=== PATIENT | male | born 1955 | race Two or more races ===

== ENCOUNTER 2025-03-19 09:56 | Outpatient (AMB) | payer MEDICARE, SELFPAY ==
--- OUTSIDE RECORDS SUMMARY | 2025-02-23 04:00 | XMS_ITS | Continuity of Care Document ---
Author Organization [facility] Address [address] [place] [address] Phone Care Team Providers Care Parachute Officer Name Role Phone See MELENDEZ, SUE, RUTHIE, Jack Unavailable U navailable Allergies, Adverse Reactions, Alerts Substance Reaction Status Criticality No Known Allergies Active No Inform ation Procedures Procedure Date Duplex Scan-extrem Veins; Uni/ CT & [place] O ct Endovenous Laser, 1st Vein- CT & [place] Ultrason Guidan Needle Bx-rad- CT & [place] O ct Inj Sclerosing Solution; Sngl- CT & [place] O ct Duplex Scan-extrem Veins; Uni/ CT & [place] O ct Endovenous Rf, 1st Vein- CT & [place] 2024 Ultrason Guidan Needle Bx-rad- CT & MA S Inj Sclerosing Solution; Sngl- CT & [place] S ep Offic Cons New/estab Mod 40 Mi- CT & [place] Duplex Scan-extrem Veins; Comp- CT & [place] Advance Directives Directive Yes / No Effective Date File Name No Information Encounters Encounter Description Practice Location Reason(s) For Visit Diagnoses Date Provider Providers Copied on Encounter [facility] MD ELLER, [address] [place] [address] Dr [address], [place], [id number], [place] tel:[phone] [facility] Encounter for follow-up examination after completed treatment for conditions other than malignant neoplasmChronic venous hypertension (idiopathic) with other complications of left lower extremity Oct-1 5 See MELENDEZ RVT, RPVI Robert. [address] [place] [address], [facility] [place], [id number] , [place]. tel:[phone] Referring Provider: Skye Castaneda NP, [address] [place] [address], [facility], [address]. tel:[phone] [facility], [address] [place] [address] Dr [address]Than[place], [id number], [place] tel:[phone] [facility] Chronic venous hypertension (idiopathic) with inflammation of left lower extremity Oct-0 5 See MELENDEZ RVT, RUTHIE Santiago. [address] [place] [address], [facility] [place], [id number] , [place]. [phone] Referring Provider: Skye Castaneda NP, [address] [place] [address], [place], [address]. tel:[phone] [facility], [address] [place] [address] Dr [address]Than[place], [id number], [place] tel:[phone] [facility] Encounter for follow-up examination after completed treatment for conditions other than malignant neoplasmVaricos e veins of right lower extremity with pain Feb-0 5 See MELENDEZ RVT, RPVI Robert. [address] [place] [address], [facility] RUMA crow, [id number] , [place]. tel:[phone] Referring Provider: Skye Castaneda NP, [address] [place] [address], [facility] [place], [address]. tel:[phone] [facility], [address] [place] [address] Dr [address]Thanh [place], [id number], [place] tel:[phone] [facility] No Information Sep-3 5 See MELENDEZ RVT, RPVI Robert. [address] [place] [address], [facility] [place], [id number] , [place]. tel:[phone] [facility], [address] [place] [address] Dr [address]Than[place], [id number], [place] tel:[phone] [facility] [place] [facility] [place] Chronic venous hypertension (idiopathic) with inflammation of right lower extremity Sep-3 5 See MELENDEZ RVT, RUTHIE Santiago. [address] [facility] [address], [facility] [place], [id number] , [place]. tel:[phone] Referring Provider: Skye Castaneda NP, [address] [facility], [place], [address]. tel:[phone] Offic Cons New/estab Mod 40 Mi- CT & [place] [facility], [address] [place] [address] Dr [address] [address]Than[place], [id number], [place] tel:[phone] [facility] [place] Restless legs syndromeVenous insufficiency (chronic) (peripheral)Pru ritus, unspecifiedCram p and spasmLocalized edemaPain in right lower legPain in left lower legPain in right legPain in left leg 5 See MELENDEZ RVT, RUTHIE Santiago. [address] [address], [facility] [place], [id number] , [place]. tel:[phone] Referring Provider: Skye Castaneda NP, [address], [place], [address]. tel:[phone] [facility], [address] [place] [address] Dr [address]Thanh [place], [id number], [place] tel:[phone] [facility] [place] Chronic venous hypertension (idiopathic) with other complications of bilateral lower extremity 5 See MELENDEZ RVT, RUTHIE Santiago. [address] [facility], [place], [place], [id number] , [place]. tel:[phone] Referring Provider: Skye Castaneda NP, [address] [place], [address]. tel:[phone] Family History Family Member Type Diagnosis Age At Onset No Information Payers Payer name Insurance type Covered green party ID Hanny garcia(s) [facility] [id number] Social History Type Description Quantity Date Captured Comments Sex Male Smoking Status No Information Chief Complaint And Reason For Visit No Information Reason For Referral Reason For Referral No Information Plan Of Treatment Date Type Action Status Goal Diet education completed Goal Tobacco cessation counseling completed Referral Ordered: Weight management: Referral to physician timeframe: 3 Months (related to Body mass index (BMI) 31.0-31.9, adult) ordered Appointment Pasquale Fenton BOOKED Appointment Pasquale Fenton BOOKED History Of Present Illness Encounter Date Complaint History Of Prese nt Illness No Information Functional Status Date Functional Assessmen t No Information Instructions Date Instruction Additional Infor mation Lifestyle education Related to B marlee mass index (BMI) 31.0-31.9, adult Diet education Related to Body mass index (BMI) 31.0-31.9, adult Giving Encouragement to exercise Related to Body mass index (BMI) 31.0-31.9, adult Patient education booklet given Related to Pain in right lower leg Pre and post instruc tions reviewed and provided Related to Pain in right lower leg Assessments Type Assessment Date No Information Patient Care Teams Name Effective Dates (start - stop) Status Members No Information
--- NOTE | 2025-03-19 11:04 | MHC.OFFVIS ---
Intake Visit Reasons: Diabetes 2 Intake Note: Pasquale is a 70 year old male who presents today as a new patient for a diabetic foot exam. Pt States his sugars was 145 as of this morning and his last known A1c was 8.6%. He denies having numbness or tingling sensation in his feet and he has no previous history of wounds or amputations. Allergies No Known Allergies Allergy (Verified 03/19/25 11:04) Medication List - Last Reviewed 03/19/25 by KENN France amlodipine 10 mg PO DAILY atovaquone 1,500 mg PO DAILY azithromycin 250 mg PO 3XW blood-glucose sensor (FreeStyle Kathy 3 Plus Sensor device) As directed blood-glucose,pit furnace melter,cont (FreeStyle Kathy 3 [place]) As directed calcium carbonate-vitamin D3 600 mg-10 mcg (400 unit) 1 tab PO DAILY carvedilol 25 mg PO DAILY clonazepam 0.5 mg PO ONCE PRN [Diabetic shoes and inserts As directed - please provide 1 pair of shoes and 3 inserts] empagliflozin (Jardiance) 25 mg PO DAILY empagliflozin (Jardiance) 10 mg PO QAM famotidine 10 mg PO DAILY famotidine (Heartburn Relief (famotidine)) 10 mg PO DAILY flash glucose sensor (FreeStyle Kathy 2 Sensor kit) As directed furosemide 80 mg PO BID insulin aspart U-100 (Novolog FlexPen U-100 Insulin aspart) subcut insulin degludec units subcut levothyroxine 137 mcg PO DAILY levothyroxine 125 mcg PO DAILY loratadine 10 mg PO DAILY magnesium oxide 400 mg PO BID pen needle, diabetic (Sonal 2nd Gen Pen Needle) As directed prednisone 5 mg PO QAM semaglutide (Ozempic) mg subcut sodium zirconium cyclosilicate (Lokelma) grams PO tacrolimus 2 mg PO Q12H HPI Comments Details: The patient is a 70-year-old male with a PMH as seen below presenting for a diabetic foot exam. Patient states his most recent blood glucose was 145 mg/dL and his most recent A1c was 8.6. He states he was previously using Insulin but states he is currently being transitioned towards using a different medication. He denies any numbness and tingling. Patient also states he has swelling in B/L LEs. He states he wears compression stockings. The patient has undergone vascular surgery. He denies any other pedal concerns. Patient was accompanied by his . [facility] Medical History (Updated 03/21/25 @ 16:31 by Jie Herr DPM) Varicose veins of bilateral lower extremities with other complications PVD (peripheral vascular disease) Bilateral leg edema Diabetes mellitus type 2 with complications Review of Systems Const Details: - Vascular: Reports intermittent B/L LE swelling. - Endocrine: Reports stable blood glucose level of 145 mg/dL and A1c of 8.6. Physical Exam Extrem Other: B/L LE Focused Physical Exam: Derm: Slightly thickened toenails x10 without discoloration or subungual debris. No open lesions, abrasions, or wounds noted. No ecchymosis or discoloration noted. No active bleeding, purulence, or drainage noted. No clinical signs of infection. Vasc: DP pulses palpable. PT pulses nonpalpable. CFT < 3 secs. Temp gradient warm to warm. Pedal hair absent. Varicosities noted. Pitting edema noted. Neuro: Protective sensations grossly intact to light touch and monofilament testing. MSK: No pain on palpation to the lower extremities. Crepitus noted with ROM of the ankles. ROM of the forefoot, hindfoot, and ankles WNL. No fluctuance noted. MMT 5/5. Nonantalgic gait noted. Pes planus foot type. Class B and C findings. Office Procedures Diabetic Foot Exam G9226 - Diabetic Foot Exam Results Reviewed Results Reviewed: Patient reports Blood glucose level yesterday of 145 mg/dL and A1c of 8.6. Assessment & Plan Assessment & Plan (1) Diabetes mellitus type 2 with complications: Code(s): E11.8 - Type 2 diabetes mellitus with unspecified complications Category: Medical (2) Bilateral leg edema: Code(s): R60.0 - Localized edema Category: Medical (3) PVD (peripheral vascular disease): Code(s): I73.9 - Peripheral vascular disease, unspecified Category: Medical (4) Pes planus: Code(s): M21.40 - Flat foot [pes planus] (acquired), unspecified foot Qualifiers: Laterality: bilateral Qualified Code(s): M21.41 - Flat foot [pes planus] (acquired), right foot; M21.42 - Flat foot [pes planus] (acquired), left foot (5) Varicose veins of bilateral lower extremities with other complications: Code(s): I83.893 - Varicose veins of bilateral lower extremities with other complications Category: Medical Plan Patient was informed and verbally consented to the use of an ambient scribe for clinic note documentation during this visit. Educated patient about diabetes and the effects on the lower extremities. I discussed the importance of wearing compression socks to manage swelling. We also talked about the necessity of proper footwear and avoiding barefoot walking to prevent injuries. Regular nail care appointments were scheduled, and a prescription for shoe inserts was provided. - Continue wearing compression socks to manage peripheral edema. - Maintain current diabetes medication regimen and monitor blood sugar levels as per PCP and fruit or nut farmer. - Avoid walking barefoot and wear supportive shoe gear to prevent foot injuries. - Prescribed diabetic shoes and inserts. - Plan for routine diabetic nail care. RTC in 3 weeks. Orders: Orders AMB Diabetic Foot Exam 03/19/25 E11.8 - Type 2 diabetes mellitus with unspecified complications, I73.9 - Peripheral vascular disease, unspecified, R60.0 - Localized edema Medications: New [Diabetic shoes and inserts] As directed - please provide 1 pair of shoes and 3 inserts 1 ea 0RF E11.8 - Type 2 diabetes mellitus with unspecified complications, I73.9 - Peripheral vascular disease, unspecified, M21.40 - Flat foot [pes planus] (acquired), unspecified foot, R60.0 - Localized edema Coding Level of Care Code New Pt Level 4 (18687) Diagnoses Diabetes mellitus type 2 with complications E11.8 Bilateral leg edema R60.0 PVD (peripheral vascular disease) I73.9 Pes planus of both feet M21.41; M21.42 Laterality: bilateral Varicose veins of bilateral lower extremities with other complications I83.893 CPT Codes Diabetic Foot Exam - CPT: G9226 - Diabetic Foot Exam ([id number]) Time Spent (min) 49
--- OUTSIDE RECORDS SUMMARY | 2025-03-19 11:40 | XMS_ITS ---
Author Organization [facility] Care Team Providers Care Latex Thread Machine Operator Name Role Phone Richa Aranda Unavailable Unavailable Gaby Arnett Unavailable Unavailable Iram Toro Unavailable Unavailable Sierra Alexander Unavailable Unavailable Whitney Schrader Unavailable Unavailable Allergies and adverse reactions Code CodeSystem Substance Reaction Severity StartDate Concern Status Ofev Unknown 03/22/2016 active Care Team Name Role Address Phone Organization Dates Iram Toro PCP [address], [place], [address], [facility] (Office): [facility] 03/22/2016 - 03/30/2016 Richa Aranda [address] [place], [address], [facility] (Office): [facility] 03/22/2016 - 03/30/2016 Gaby Arnett [address] [facility] [address] [place] [address], [address], [facility] (Office): [facility] 03/22/2016 - 03/30/2016 Sierra Alexander [address], [address], [facility] (Office): [facility] 03/22/2016 - 03/30/2016 Whitney Schrader [address] [facility] [address] [place] [address] [place], [address], [facility] (Office): [facility] 03/22/2016 - 03/30/2016 Encounters Encounter Type Code Code System Description Performer Discharge Disposition Service Delivery Location Date Ambulatory Encounter CPT Code = [id number] Respiratory failure [facility] Address: [address] [place] [address], [address] [place] [address] , [facility]. 02/17 Ambulatory Encounter CPT Code = [id number] Fibrosis of lung [facility] Address: [address] [place] [address], [address] , [facility]. 02/17 Ambulatory Encounter CPT Code = [id number] Incoordination [facility] Address: [address] [place] [address], [address] , [facility]. 02/17 Ambulatory Encounter CPT Code = [id number] Difficulty walking [facility] Address: [address] [place] [address], [address] , [facility]. 02/17 Ambulatory Encounter CPT Code = [id number] Dyspnea [facility] Address: [address] [place] [address], [address] , [facility]. 02/17 Immunizations Immunization Status Vaccine Details Vaccine Code CodeSystem Peng e Notes Influenza cancelled Influenza, split virus, trivalent, injectable, contains preservative 141 CVX created date: 03/22/2016 consent date: 03/22/2016 Pneumovax Dose 1 cancelled cre ated date: 03/22/2016 consent date: 03/22/2016 Medications Section Medication Name Status Code CodeSystem Dose Route Frequency Admin Type Sig Text Start Date End Date Indication Acetaminoph en Tablet 325 MG active 60172 2 RXNORM 2 table t Oral as needed PRN Give 2 table t by mouth every 6 hours as neede d for Pain Do not excee d 3 grams in 24 hours . T otal 650 mg AND Give 2 table t by mouth every 6 hours as neede d for Ferdinand n[place] ratur e > 99 Do not excee d 3 grams in 24 hours . T otal 650mg 2024 - Pain 79392 2 RXNORM 2 table t Oral as needed PRN Give 2 table t by mouth every 6 hours as neede d for Pain Do not excee d 3 grams in 24 hours . T otal 650 mg AND Give 2 table t by mouth every 6 hours as neede d for Ferdinand naga dior e > 99 Do not excee d 3 grams in 24 hours . T otal 650mg 2024 - Elevated Temperature > 99 Mental Status Section Date Assessment Total Score Description 03/30/2016 BIMS 15 cognitively int act CAM 0 No delirium ind icated PHQ-9 00 03/29/2016 BIMS 15 cognitively int act CAM 0 No delirium ind icated PHQ-9 00 Insurance Providers Problems Problem # Description Date of onset Resolved Date Code CodeSystem Concern Status 1 ACUTE RESPIRATORY FAILURE, UNSPECIFIED WHETHER WITH HYPOXIA OR HYPERCAPNIA 03/23/[address] active 2 DIFFICULTY IN WALKING, NOT ELSEWHERE CLASSIFIED 03/22/[address] active 3 OTHER LACK OF COORDINATION 03/22/[address] active 4 PULMONARY FIBROSIS, UNSPECIFIED 03/22/[address] active 5 SHORTNESS OF BREATH 03/22/[address] active Reason for Referral No Reasons for Referral Entered Social History Social History Observation Description Start Date End Date Code Code System Current Smoking Status Tobacco smoking consumption unknown 396849673 SNOMED CT Sex Assigned At Male 1955 15075-7 [facility] Gender Identity Sexual Orientation Vital Signs Code Code System Vitals Name Values and Units Timing Information 8867-4 [facility] Heart rate Value=78.0 Units=/min 09413-3 LOINC Weight Oztlb=154.6 Units=Lbs 2339-0 INC Blood Sugar Rugvs=270.0 Units=mg/dL 03/29/2016 9279-1 INC Respiratory Rate Value=20.0 Units=/m in 03/29/2016 8462-4 INC Blood Pressure-Diastolic Value=76 Un its=mmHg 03/29/2016 8480-6 LOINC Blood Pressure-Systolic Xzjwh=963 Un its=mmHg 03/29/2016 8310-5 [facility] Body Temperature Value=97.0 Units= F 03/29/2016 65065-7 LOINC O2 % BldC Oximetry Value=96.0 Units= % 03/29/2016 8302-2 LOINC Height Value=66.0 Units=Inches 03/26/2016
--- OUTSIDE RECORDS SUMMARY | 2025-03-19 11:40 | XMS_ITS | Clinical Summary ---
Author Organization [facility] Address [address] [place] [address] Care Team Providers Care Account Strategist Name Role Phone Unavailable Primary Care Provider Unavailabl e Surgical History Surgery Date Site/Laterality Comments COLONOSCOPY 11/08/11 PROCEDURE: HISTORICAL COLONOSCOPY Medical History Medical History Date Comments COPD (chronic obstructive pu lmonary disease) ([facility] V24, [facility] V28) 05/25/2014 DX:COPD (chronic o bstructive pulmonary disease) ([facility]) Rosacea 05/25/2014 DX:Rosacea Leukocytosis 05/25/2014 DX:Leukocytosis Family History Medical History Relation Name Comments Diabetes Brother 1 Other: pulmonary embolism Father Hypertension Mother Relation Name Status Comments Brother 1 Brother 2 Father Mother Social History Tobacco Use Types Packs/Day Years Used Date Smoking Tobacco: Former Smokeless Tobacco: Never Alcohol Use Standard Drinks/Week Comments No 0 (1 standard drink = 0.6 oz pur e alcohol) Sex and Gender Information Value Date Recorded Sex Assigned at Not on file Legal Sex Male 8:26 AM EST Gender Identity Not on file Sexual Orientation Not on file Obstetrics History Plan of Treatment Health Maintenance Due Date Last Done Comments DTaP,Tdap,and Td Vaccines (1 - Tdap) 1974 Pneumococcal Vaccine: 50+ Ye ars (2 of 2 - PCV) 01/14/2013 01/15/2012 Zoster Vaccines (2 of 3) 07/20/2013 05/25/2013 Depression Screening 05/13/2024 COVID-19 Vaccine ( - 2023-2 5 season) 2025 Influenza Vaccine (#1) 2025 02/24/2014 RSV Immunization Adult Patie nts (1 - 1-dose 75+ series) 2028 HIB Vaccines Aged Out No longer eligi ble based on patient's age to complete this topic HPV Vaccines Aged Out No longer eligi ble based on patient's age to complete this topic Hepatitis A Vaccines Aged Out No long er eligible based on patient's age to complete this topic Hepatitis B Vaccines Aged Out No long er eligible based on patient's age to complete this topic IPV Vaccines Aged Out No longer eligi ble based on patient's age to complete this topic MMR Vaccines Aged Out No longer eligi ble based on patient's age to complete this topic Meningococcal ACWY Vaccine Aged Out N o longer eligible based on patient's age to complete this topic Meningococcal B Vaccine Aged Out No l onger eligible based on patient's age to complete this topic RSV Immunization Patients Un tommie 20 months Aged Out No longer eligible b ased on patient's age to complete this topic Varicella Vaccines Aged Out No longer eligible based on patient's age to complete this topic
== END 2025-03-19 11:37 | disposition home or self-care (01) ==
LOC: HO.HPODS 09:56
PROVIDERS: PCP Nurse Practitioner Family; Visit Provider Student in an Organized Health Care Education/Training Program
DX: E11.8 Type 2 diabetes mellitus with unspecified complications (principal); R60.0 Localized edema; I73.9 Peripheral vascular disease, unspecified; M21.41 Flat foot [pes planus] (acquired), right foot; M21.42 Flat foot [pes planus] (acquired), left foot; I83.893 Varicose veins of bilateral lower extremities with other complications
CPT/HCPCS: 99204; G9226

== ENCOUNTER → 2025-03-19 09:56 | Outpatient (BNVA) | payer OTHER, SELFPAY | PROVIDERS: PCP Nurse Practitioner Family; Visit Provider Student in an Organized Health Care Education/Training Program | DX: E11.8 Type 2 diabetes mellitus with unspecified complications (principal); I73.9 Peripheral vascular disease, unspecified; M21.41 Flat foot [pes planus] (acquired), right foot; M21.42 Flat foot [pes planus] (acquired), left foot; I83.893 Varicose veins of bilateral lower extremities with other complications | CPT/HCPCS: 99202 ==

== ENCOUNTER 2025-04-12 10:45 | Outpatient (AMB) | payer MEDICARE, SELFPAY ==
--- NOTE | 2025-04-12 11:35 | MHC.OFFVIS ---
Intake Visit Reasons: routine diabetic nail care Intake Note: Pasquale is a 70 year old male here today for a follow up for routine diabetic nail care. Patient was advised to continue wearing compression socks, avoid barefoot walking and to wear supportive shoe gear. Patient prescribed diabetic shoes and inserts. Patient reports everything is not too bad. No one has contacted him for diabetic shoes and inserts yet. Patient had a low sugar this morning of 70. No numbness, tingling or burning in feet. Allergies No Known Allergies Allergy (Verified 04/12/25 11:36) HPI Comments Details: The patient is a 70-year-old individual presenting for routine diabetic preventative foot care. The patient states his most recent blood glucose is 70 mg/dL. Patient states he experiences discomfort to the toes when the nails are too thick or too long. He denies any new pedal injuries. He denies any other pedal concerns. Patient was accompanied by his . Patient is unable to tend to his feet due to his past medical history. [facility] Medical History (Updated 04/14/25 @ 10:43 by Jie Herr DPM) Tinea unguium Nail disorder Varicose veins of bilateral lower extremities with other complications PVD (peripheral vascular disease) Bilateral leg edema Diabetes mellitus type 2 with complications Review of Systems Const Details: - Vascular: Reports intermittent B/L LE swelling. - Endocrine: Reports blood glucose level of 70 mg/dL. Physical Exam Extrem Other: B/L LE Focused Physical Exam: Derm: Slightly thickened and elongated toenails x10 without discoloration or subungual debris. No open lesions, abrasions, or wounds noted. No ecchymosis or discoloration noted. No active bleeding, purulence, or drainage noted. No clinical signs of infection. Vasc: DP pulses palpable. PT pulses nonpalpable. CFT < 3 secs. Temp gradient warm to warm. Pedal hair absent. Varicosities noted. Pitting edema noted. Neuro: Protective sensations grossly intact to light touch and monofilament testing. MSK: No pain on palpation to the lower extremities. Crepitus noted with ROM of the ankles. ROM of the forefoot, hindfoot, and ankles WNL. No fluctuance noted. MMT 5/5. Nonantalgic gait noted. Pes planus foot type. Class B and C findings. Office Procedures AMB Debridement/Avulsion Podia Details: Debrided toenails x10 using sterile nail nippers and Dremel without incidents. 30027-[id number] of Nail 6+ Procedure code (CPT) selection complete Results Reviewed Results Reviewed: Patient reports Blood glucose level yesterday of 70 mg/dL and A1c of 8.6. Assessment & Plan Assessment & Plan (1) Diabetes mellitus type 2 with complications: Code(s): E11.8 - Type 2 diabetes mellitus with unspecified complications Category: Medical (2) Bilateral leg edema: Code(s): R60.0 - Localized edema Category: Medical (3) PVD (peripheral vascular disease): Code(s): I73.9 - Peripheral vascular disease, unspecified Category: Medical (4) Pes planus: Code(s): M21.40 - Flat foot [pes planus] (acquired), unspecified foot (5) Varicose veins of bilateral lower extremities with other complications: Code(s): I83.893 - Varicose veins of bilateral lower extremities with other complications Category: Medical (6) Nail disorder: Code(s): L60.9 - Nail disorder, unspecified Category: Medical (7) Tinea unguium: Code(s): B35.1 - Tinea unguium Category: Medical Plan Patient was informed and verbally consented to the use of an ambient scribe for clinic note documentation during this visit. Discussed with patient continued recommended foot care every 9 weeks for preventative measures. - Debrided toenails x10. - Continue wearing compression socks to manage peripheral edema. - Maintain current diabetes medication regimen and monitor blood sugar levels as per PCP and insulator technician. - Avoid walking barefoot and wear supportive shoe gear to prevent foot injuries. - Obtain diabetic shoes and inserts. RTC in 9 weeks. Orders: Orders AMB Debridement/Avulsion Podiatry 04/12/25 B35.1 - Tinea unguium, E11.8 - Type 2 diabetes mellitus with unspecified complications, I73.9 - Peripheral vascular disease, unspecified, I83.893 - Varicose veins of bilateral lower extremities with other complications, L60.9 - Nail disorder, unspecified, R60.0 - Localized edema Coding Level of Care Code Est Pt Level 3 (63271) Diagnoses Diabetes mellitus type 2 with complications E11.8 Bilateral leg edema R60.0 PVD (peripheral vascular disease) I73.9 Pes planus M21.40 Varicose veins of bilateral lower extremities with other complications I83.893 Nail disorder L60.9 Tinea unguium B35.1 CPT Codes Skin Debridement - CPT: 43297-Ehtpqvdelfm of Nail 6+ ([id number]) Time Spent (min) 28 Comment 8 mins for procedure
--- OUTSIDE RECORDS SUMMARY | 2025-04-12 13:46 | XMS_ITS | Encounter Summary ---
Author Organization [facility], Address [address] [place] [address] Phone Care Team Providers Care Bedspring Assembler Name Role Phone Skye Castaneda NP Primary Care Provider [phone] Encounter Details Date Type Department Care Team (Late st Contact Info) Description 03/12/2025 Orders Only [facility], [address] [place] [address] Prakash Holbrook MD [address] [place] [phone] Chronic kidney disease stage 4 (HCC) Social History Tobacco Use Types Packs/Day Years Used Date Smoking Tobacco: Former Cigarettes 0 Q uit: 08/07/1999 Smokeless Tobacco: Never Comments:Smoking History Inf o:Some days Sex and Gender Information Value Date Recorded Sex Assigned at Not on file Legal Sex Male 4:30 PM EST Gender Identity Not on file Sexual Orientation Not on file documented as of this encounter Plan of Treatment Not on file documented as of this encounter Visit Diagnoses Diagnosis Chronic kidney disease stage 4 (HCC) documented in this encounter Care Teams Bedspring Assembler Relationship Specialty Start Date End Date Skye Castaneda NP [address] [place] [address] PCP - General Nurse Practitioner 06/30/24 documented as of this encounter
--- OUTSIDE RECORDS SUMMARY | 2025-04-12 13:46 | XMS_ITS | Encounter Summary ---
Author Organization [facility] [place], Address [address] [place] [address] Phone Care Team Providers Care Special Education Director Name Role Phone Skye Castaneda DECORATOR STREET AND BUILDING Primary Care Provider [phone] Encounter Details Date Type Department Care Team (Late st Contact Info) Description 10/24/2021 Documentation Only [facility], [address] [place] [address] Prakash Holbrook MD [address] [place] [phone] Social History Tobacco Use Types Packs/Day Years [...] documented as of this encounter Visit Diagnoses Not on filedocumented in this encounter Care Teams Special Education Director Relationship Specialty Start Date End Date Skye Castaneda NP [address] [place], [place] [phone] PCP - General Nurse Practitioner 06/30/24 documented as of this encounter
--- OUTSIDE RECORDS SUMMARY | 2025-04-12 13:46 | XMS_ITS | Clinical Summary ---
Author Organization [facility] [place], Address [address] [address] Phone Care Team Providers Care Sales Supervisor Name Role Phone Skye Castaneda NP Primary Care Provider [phone] Allergies Active Allergy Reactions Criticality Noted Date Comments Nintedanib 08/29/2016 diarrhea Medications ASPIRIN 81 PO Take 81 mg by mouth daily Active Calcium Carbonate-Vitam in D3 600-400 MG-UNIT tablet 1 tablet 2 (two) times a day 7 Active Insulin Pen Needle 31G X 8 MM misc 1 each 7 Active MAGNESIUM OXIDE 400 PO Take 400 mg by mouth twice a day 9 Active Polyethylene Glycol 1000 powder Take 17 g by mouth 9 Active pyridoxine (VITAMIN B-6) 50 MG tablet Take 50 mg by mouth daily 9 Active pyridoxine (VITAMIN B-6) 50 MG tablet 1 tablet 1 (one) time each day 7 Active potassium & sodium phosphates (PHOS-NAK) 280-160-250 MG packet Take 1 packet by mouth 9 Active acetaminophen (TYLENOL) 500 MG tablet Take 1,000 mg by mouth every 6 (six) hours if needed 7 Active amLODIPine (NORVASC) 5 MG tablet Take 5 mg by mouth 1 (one) time each day 9 Active atovaquone (MEPRON) 750 MG/5ML suspension 10 mL 1 (one) time each day 7 Active Carboxymethylce llul-Glycerin (REFRESH OPTIVE) 0.5-0.9 % solution Administer 1 drop into both eyes 4 (four) times a day 8 Active famotidine (PEPCID) 20 MG tablet Take 20 mg by mouth twice a day 9 Active insulin aspart (NovoLOG FLEXPEN) 100 UNIT/ML injection Inject under the skin 7 Active insulin glargine (BASAGLAR KWIKPEN) 100 UNIT/ML injection Comments: Filled Date: Jul 31 2017 12:00AM Patient Notes: INJECT 40 UNITS INTO THE SKIN DAILY AT BEDTIME Duration: 38 8 Active isoniazid (NYDRAZID) 300 MG tablet Take 1 tablet by mouth 1 (one) time each day 7 Active loratadine (CLARITIN) 10 MG tablet Take 10 mg by mouth 1 (one) time each day 7 Active metoprolol succinate XL (TOPROL-XL) 25 MG 24 hr tablet Take 25 mg by mouth 1 (one) time each day 9 Active levothyroxine (SYNTHROID, LEVOTHROID) 125 MCG tablet 1 tablet 1 (one) time each day 8 Active metoprolol tartrate (LOPRESSOR) 25 MG tablet 0.5 tablets 2 (two) times a day 7 Active mycophenolate (CELLCEPT) 500 MG tablet Take 1,000 mg by mouth twice a day 9 Active mycophenolate (CELLCEPT) 200 MG/ML suspension Comments: Filled Date: Jun 05 2017 12:00AM Patient Notes: SHAKE WELL AND TK 1 TEA VIA GTUBE Q 12 HOURS Duration: 30 7 Active predniSONE (DELTASONE) 5 MG tablet 1 tablet 1 (one) time each day 7 Active simvastatin (ZOCOR) 20 MG tablet 1 tablet 1 (one) time each day 7 Active sulfamethoxazol e-trimethoprim (BACTRIM DS,SEPTRA DS) 800-160 MG per tablet 1 tablet 1 (one) time each day 8 Active tacrolimus (PROGRAF) 1 MG capsule TOME 2 CAPSULAS POR VIA ORAL DOS VECES AL LADAN 9 Active tacrolimus (PROGRAF) 1 MG capsule 3 capsules 2 (two) times a day 7 Active valGANciclovir (VALCYTE) 450 MG tablet 2 tablets 1 (one) time each day 7 Active famotidine (PEPCID) 20 MG tablet 1 tablet 2 (two) times a day 7 Active Lancets (freestyle) lancets USE TO CHECK BLOOD SUGARS 3 4 TIMES DAILY 0 Active FREESTYLE LITE test strip USE TO CHECK BLOOD SUGARS 3 4 TIMES DAILY DX E11.9 TYPE 2 DIABETES 0 Active Continuous Blood Gluc Sensor (FreeStyle Kathy 14 Day Sensor) [facility] 0 Active potassium & sodium phosphates (PHOS-NAK) 280-160-250 MG packet TAKE 1 PACKET BY MOUTH 3 TIMES A DAY EDNA LO INDICADO *TAKE BEFORE MEALS. 1 Active Multiple Vitamins-Minera ls (Multivitamin Adult, Minerals,) tablet Take 1 tablet by mouth daily 1 Active magnesium oxide (MAG-OX) 400 MG tablet 1 Active mycophenolate (CELLCEPT) 200 MG/ML suspension Take 1,000 mg by mouth 7 Active Loratadine 10 MG capsule Take 10 mg by mouth 8 Active levothyroxine (SYNTHROID, LEVOTHROID) 175 MCG tablet 1 Active glucose 4 g chewable tablet 1 Active furosemide (LASIX) 80 MG tablet TOME FREDIS TABLETA (80 MG TOTAL) POR VIA ORAL EN LA MANANA AND 1 TABLETA EN LA NOCHE 180 tablet 3 4 Active carvedilol (Coreg) 25 MG tablet Take 1 tablet (25 mg total) by mouth 1 (one) time each day 90 tablet 3 5 Active predniSONE 5 MG tablet Take 1 tablet (5 mg total) by mouth in the morning. 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 Poisoning by drug AND/OR medicinal substance 02/2022 COVID-19 08/30/2020 Anemia 06/19/2019 Chronic kidney disease stage 4 06/19/2019 Gastroesophageal reflux disease 06/19/2019 Hemorrhoid 06/19/2019 Rheumatoid arthritis 06/19/2019 Type 2 diabetes mellitus 06/19/2019 Tuberculosis 01/09/2017 Pneumothorax 11/29/2016 Finding of functional performance and activity 0 10/06/2016 Immunosuppression 10/06/2016 Malnutrition 10/06/2016 Acute nontraumatic kidney injury 10/02/2016 Hyperglycemia 10/02/2016 Respiratory failure 09/30/2016 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 Replacing diagnoses that were inactivated after the 02/11/24 Regulatory Import Hyperlipidemia 10/04/2015 Hypertension 10/04/2015 Hypothyroidism 10/04/2015 Idiopathic pulmonary fibrosis 10/04/2015 Osteoarthritis 10/04/2015 Chronic obstructive pulmonary disease 05/25/2014 Benign essential hypertension 04/01/2014 Pure hypercholesterolemia 04/01/2014 Encounters Date Type Department Care Team Description 03/30/2025 2:00 PM EST Office Visit [facility] [address] [phone] Prakash Holbrook MD Chronic kidney disease stage 4 (HCC) (Primary Dx) 03/30/2025 1:45 PM EST Clinical Support [facility] [address] [place] [phone] Rosa Mcbride RN Chronic kidney disease stage 4 (HCC) (Primary Dx); Need for prophylactic vaccination and inoculation against influenza 03/12/2025 Orders Only [facility] [address] [place] [phone] Prakash Holbrook MD Chronic kidney disease stage 4 (HCC) 01/15/2025 Orders Only [facility] [place], [address] [address] Prakash Holbrook MD Chronic kidney disease stage 4 (HCC) from Last 3 Months Immunizations Immunization Administration Dates Next Due Hep B / HiB 01/27/2016 Hepatitis B 01/27/2016,12/27/2015 Influenza Split High Dose Pr eservative Free IM 02/14/2019,03/26/2018 Influenza TIV (IM) 02/24/2014 Influenza Vaccine, Quadrival ent, Adjuvanted 01/05/2020 Influenza Whole 02/25/2020,02/14/2019 Influenza, Quadrivalent, Pre servative Free 01/13/2021,03/01/2016 Influenza, Recombinant, PF 03/30/2025 Influenza, Recombinant, Quad rivalent, Pf 01/23/2017 Influenza, Unspecified 02/25/2020,2018,02/24/2018,02/24,02/24/2014,06/28/2013,01/14/2012 ,03/04/2011,01/15/2010 Pneumococcal Conjugate 13-Valent 12/27/2015 Pneumococcal Polysaccharide 09/04/2021, 9,01/15/2012 Shingrix 10/19/2020,10/19/2020 Tdap 03/21/2015 Zoster 05/25/2013 Family History Medical History Relation Comments Hypertension Mother Diabetes Sibling brother Relation Status Comments Father Unknown Mother Unknown Sibling Social History Tobacco Use Types Packs/Day Years Used Date Smoking Tobacco: Former Cigarettes 0 Q uit: 08/07/1999 Smokeless Tobacco: Never Comments:Smoking History Inf o:Some days Sex and Gender Information Value Date Recorded Sex Assigned at Not on file Legal Sex Male 4:30 PM EST Gender Identity Not on file Sexual Orientation Not on file Last Filed Vital Signs Vital Sign Reading Time Taken Comments Blood Pressure 130/68 10/05/2021 11:31 AM EDT Pulse - - Temperature - - Respiratory Rate - - Oxygen Saturation - - Inhaled Oxygen Concentration - - Weight 72.6 kg (160 lb) 08/07/2017 12:00 PM EDT Height 167.6 cm (5' 6 ) 08/07/2017 12:00 PM EDT Body Mass Index 25.82 08/07/2017 12:00 PM EDT Plan of Treatment Health Maintenance Due Date Last Done Comments Colorectal Cancer Screening: Annual FOBT 2002 Colorectal Cancer Screening: Colonoscopy 2002 Colorectal Cancer Screening: Sigmoidoscopy 2002 Hepatitis B Vaccine (1 of 3 - Risk 3-dose series) 2013 01/27/2016, 01/27/2016, 12/27/2015 Diabetes: Hemoglobin A1C 06/19/2019 Diabetes: Ophthalmology Exam 06/19/2019 Diabetes: Pedal Pulse Checked 06/19/2019 Diabetes: Sensory Foot Exam 06/19/2019 Diabetes: Visual Foot Exam 06/19/2019 Pneumococcal Vaccine: 50+ Years Completed 09/04/2021, 07/02/2018, 12/27/2015, Additional history exists Pneumococcal Vaccine: Peds ( 0 to 5 Years) and At-Risk Patients (6 to 49 Years) Discontinued 09/04/2021, 07/02/2018, 12/27/2015, Additional history exists Influenza Vaccine Completed 03/30/2025, , 01/31/2023, Additional history exists Insurance [facility] One Care Dual SNP ([id number]) Care Teams Sales Supervisor Relationship Specialty Start Date End Date Skye Castaneda NP [address] [place] [address] PCP - General Nurse Practitioner 06/30/24
--- OUTSIDE RECORDS SUMMARY | 2025-04-12 13:46 | XMS_ITS | Encounter Summary ---
Author Organization [facility], Address [address] [place] [address] Phone Care Team Providers Care Tractor Drill Operator Name Role Phone Skye Castaneda DRYING MACHINE OPERATOR PACKAGE YARNS Primary Care Provider [phone] Encounter Details Date Type Department Care Team (Late st Contact Info) Description 06/02/2021 Documentation Only [facility], [address] [place] [address] Prakash Holbrook MD [address] [place] [phone] Social History Tobacco Use Types Packs/Day Years [...] on filedocumented in this encounter Care Teams Tractor Drill Operator Relationship Specialty Start Date End Date Skye Castaneda NP [address] [place], [place] [phone] PCP - General Nurse Practitioner 06/30/24 documented as of this encounter
--- OUTSIDE RECORDS SUMMARY | 2025-04-12 13:46 | XMS_ITS | Encounter Summary ---
Author Organization [facility], Address [address] [place] [address] Phone Care Team Providers Care Painter And Decorator Name Role Phone Skye Castaneda FOOD SAFETY AUDITOR Primary Care Provider [phone] Encounter Details Date Type Department Care Team (Late st Contact Info) Description 10/24/2021 Documentation Only [facility], [address] [place] [address] Prakash Holbrook MD [address] [place] [phone] Social History Tobacco Use Types Packs/Day Years [...] on filedocumented in this encounter Care Teams Painter And Decorator Relationship Specialty Start Date End Date Skye Castaneda NP [address] [place], [place] [phone] PCP - General Nurse Practitioner 06/30/24 documented as of this encounter
--- OUTSIDE RECORDS SUMMARY | 2025-04-12 13:46 | XMS_ITS | Encounter Summary ---
Author Organization [facility], Address [address] [place] [address] Phone Care Team Providers Care Lead Systems Developer Name Role Phone Skye Castaneda COMMERCIAL GREEN BUILDING DESIGNER Primary Care Provider [phone] Encounter Details Date Type Department Care Team (Late st Contact Info) Description 06/02/2021 Documentation Only [facility], [address] [place] [address] Prakash Holbrook MD [address] [place] [phone] Social History Tobacco Use Types Packs/Day Years [...] on filedocumented in this encounter Care Teams Lead Systems Developer Relationship Specialty Start Date End Date Skye Castaneda NP [address] [place], [place] [phone] PCP - General Nurse Practitioner 06/30/24 documented as of this encounter
--- OUTSIDE RECORDS SUMMARY | 2025-04-12 13:46 | XMS_ITS | Encounter Summary ---
Author Organization [facility], Address [address] [place] [address] Phone Care Team Providers Care Avionics Shop Supervisor Name Role Phone Skye Castaneda ELECTRON TUBE ASSEMBLER Primary Care Provider [phone] Encounter Details Date Type Department Care Team (Late st Contact Info) Description 12/14/2021 Documentation Only [facility], [address] [place] [address] Prakash Holbrook MD [address] [place] [phone] Social History Tobacco Use Types Packs/Day Years [...] on filedocumented in this encounter Care Teams Avionics Shop Supervisor Relationship Specialty Start Date End Date Skye Castaneda NP [address] [place], [place] [phone] PCP - General Nurse Practitioner 06/30/24 documented as of this encounter
--- OUTSIDE RECORDS SUMMARY | 2025-04-12 13:46 | XMS_ITS | Encounter Summary ---
Author Organization [facility], Address [address] [place] [address] Phone Care Team Providers Care Solution Developer Name Role Phone Skye Castaneda NP Primary Care Provider [phone] Encounter Details Date Type Department Care Team (Late st Contact Info) Description 01/15/2025 Orders Only [facility], [address] [place] [address] Prakash Holbrook MD [address] [place] [phone] Chronic kidney disease stage 4 (HCC) Social [...] (HCC) documented in this encounter Care Teams Solution Developer Relationship Specialty Start Date End Date Skye Castaneda NP [address] [place] [address] PCP - General Nurse Practitioner 06/30/24 documented as of this encounter
--- OUTSIDE RECORDS SUMMARY | 2025-04-12 13:46 | XMS_ITS | Encounter Summary ---
Author Organization [facility], Address [address] [place] [address] Phone Care Team Providers Care Office Machine Punch Operator Name Role Phone Skye Castaneda RESTRIKE HAMMER OPERATOR Primary Care Provider [phone] Encounter Details Date Type Department Care Team (Late st Contact Info) Description 06/02/2021 Documentation Only [facility], [address] [place] [address] Prakash Holbrook MD [address] [place] [phone] Social History Tobacco Use Types Packs/Day Years [...] on filedocumented in this encounter Care Teams Office Machine Punch Operator Relationship Specialty Start Date End Date Skye Castaneda NP [address] [place], [place] [phone] PCP - General Nurse Practitioner 06/30/24 documented as of this encounter
--- OUTSIDE RECORDS SUMMARY | 2025-04-12 13:46 | XMS_ITS | Encounter Summary ---
Author Organization [facility], Address [address] [place] [address] Phone Care Team Providers Care Book Jogger Name Role Phone Skye Castaneda SALESPERSON FLYING SQUAD Primary Care Provider [phone] Encounter Details Date Type Department Care Team (Late st Contact Info) Description 10/24/2021 Documentation Only [facility], [address] [place] [address] Prakash Holbrook MD [address] [place] [phone] Social History Tobacco Use Types Packs/Day Years [...] on filedocumented in this encounter Care Teams Book Jogger Relationship Specialty Start Date End Date Skye Castaneda NP [address] [place], [place] [phone] PCP - General Nurse Practitioner 06/30/24 documented as of this encounter
--- OUTSIDE RECORDS SUMMARY | 2025-04-12 13:46 | XMS_ITS | Encounter Summary ---
Author Organization [facility] [place], Address [address] [place] [address] Phone Care Team Providers Care Electrotype Finisher Name Role Phone Skye Castaneda CAREER MANAGER Primary Care Provider [phone] Encounter Details Date Type Department Care Team (Late st Contact Info) Description 12/14/2021 Documentation Only [facility] [place], [address] [place] [address] Prakash Holbrook MD [address] [place] [phone] Social History Tobacco Use Types Packs/Day Years [...] on filedocumented in this encounter Care Teams Electrotype Finisher Relationship Specialty Start Date End Date Skye Castaneda NP [address] [place], [place] [phone] PCP - General Nurse Practitioner 06/30/24 documented as of this encounter
--- OUTSIDE RECORDS SUMMARY | 2025-04-12 13:46 | XMS_ITS | Encounter Summary ---
Author Organization [facility], Address [address] [place] [address] Phone Care Team Providers Care Rod Tape Operator Name Role Phone Skye Castaneda NP Primary Care Provider [phone] Encounter Details Date Type Department Care Team (Late st Contact Info) Description 11/20/2024 Orders Only [facility], [address] [place] [address] Prakash Holbrook MD [address] [place] [id number] Chronic kidney disease stage 4 (HCC) Social [...] (HCC) documented in this encounter Care Teams Rod Tape Operator Relationship Specialty Start Date End Date Skye Castaneda NP [address] [place] [address] PCP - General Nurse Practitioner 06/30/24 documented as of this encounter
--- OUTSIDE RECORDS SUMMARY | 2025-04-12 13:46 | XMS_ITS | Encounter Summary ---
Author Organization [facility], Address [address] [place] [address] Phone Care Team Providers Care Naval Designer Name Role Phone Skye Castaneda CAP INSPECTOR Primary Care Provider [phone] Encounter Details Date Type Department Care Team (Late st Contact Info) Description 12/14/2021 Documentation Only [facility], [address] [place] [address] Prakash Holbrook MD [address] [place] [id number] Social History Tobacco Use Types Packs/Day Years [...] on filedocumented in this encounter Care Teams Naval Designer Relationship Specialty Start Date End Date Skye Castaneda NP [address] [place], [place] [id number] PCP - General Nurse Practitioner 06/30/24 documented as of this encounter
--- OUTSIDE RECORDS SUMMARY | 2025-04-12 13:46 | XMS_ITS | Encounter Summary ---
Author Organization [facility], Address [address] [place] [address] Phone Care Team Providers Care Dry Boss Name Role Phone Skye Castaneda HANGING FLAGS DECORATOR Primary Care Provider [phone] Encounter Details Date Type Department Care Team (Late st Contact Info) Description 12/14/2021 Documentation Only [facility], [address] [place] [address] Prakash Holbrook MD [address] [place] [id number] Social History Tobacco Use Types Packs/Day Years [...] on filedocumented in this encounter Care Teams Dry Boss Relationship Specialty Start Date End Date Skye Castaneda NP [email or web address] [place], [place] [id number] PCP - General Nurse Practitioner 06/30/24 documented as of this encounter
--- OUTSIDE RECORDS SUMMARY | 2025-04-12 13:46 | XMS_ITS | Encounter Summary ---
Author Organization [facility], Address [address] [place] [address] Phone Care Team Providers Care Marketing Budget Analyst Name Role Phone Skye Castaneda PRACTICE PHYSICIAN Primary Care Provider [phone] Encounter Details Date Type Department Care Team (Late st Contact Info) Description 01/02/2024 Documentation Only [facility], [address] [place] [address] Jeannette Sheehan [place] [address] [place] [address] Social History Tobacco Use Types Packs/Day Years [...] on filedocumented in this encounter Care Teams Marketing Budget Analyst Relationship Specialty Start Date End Date Skye Castaneda NP [address] [place] [address] PCP - General Nurse Practitioner 06/30/24 documented as of this encounter
== END 2025-04-12 11:52 | disposition home or self-care (01) ==
LOC: HO.HPODS 10:46
PROVIDERS: PCP Nurse Practitioner Family; Visit Provider Student in an Organized Health Care Education/Training Program
DX: E11.8 Type 2 diabetes mellitus with unspecified complications (principal); R60.0 Localized edema; I73.9 Peripheral vascular disease, unspecified; M21.40 Flat foot [pes planus] (acquired), unspecified foot; I83.893 Varicose veins of bilateral lower extremities with other complications; L60.9 Nail disorder, unspecified; B35.1 Tinea unguium
CPT/HCPCS: 11721; 99213

== ENCOUNTER → 2025-04-12 10:45 | Outpatient (BNVA) | payer MEDICARE, SELFPAY | PROVIDERS: PCP Nurse Practitioner Family; Visit Provider Student in an Organized Health Care Education/Training Program | DX: E11.8 Type 2 diabetes mellitus with unspecified complications (principal); R60.0 Localized edema; I73.9 Peripheral vascular disease, unspecified; I83.893 Varicose veins of bilateral lower extremities with other complications; L60.9 Nail disorder, unspecified; B35.1 Tinea unguium | CPT/HCPCS: 11721; 99212 ==